=== PATIENT | male | born 1940 | race Caucasian/White ===

== ENCOUNTER → 2025-06-07 10:06 | Outpatient (REF) | payer MEDICARE, SELFPAY ==
[2025-06-07 12:21] LABS: Hematocrit 33.9 % (39.0-52.0); Hemoglobin 11.6 g/dL (13.0-18.0); Mean Corp Hgb Conc. 34.2 g/dL (33.0-37.0); Mean Corpuscular Volume 92.6 fL (80.0-94.0); Nucleated Red Blood Cells % 0 % (-); Platelet Count 175 10^3/uL (130-400); Red Cell Dist. Width 12.5 % (11.5-14.5)
[2025-06-07 12:31] LABS: ALT (SGPT) 13 U/L (0-50); AST (SGOT) 21 U/L (17-59); Albumin 3.3 g/dl (3.5-5.0); Alkaline Phosphatase 42 U/L (38-126); Blood Urea Nitrogen 17 mg/dl (9-20); Calcium 8.8 mg/dl (8.4-10.2); Carbon Dioxide 30 mmol/L (22-30); Chloride 105 mmol/L (98-107); Glucose 136 mg/dl (70-99); Potassium 3.9 mmol/L (3.5-5.1); Sodium 137 mmol/L (135-145); Total Protein 5.9 g/dl (6.3-8.2); eGFR > 60.00
[2025-06-08 08:40] LABS: Glycohemoglobin (HgbA1c) 6.3 % (4.0-5.6)
== END ==
LOC: OLABPATH 10:06
PROVIDERS: ATTENDING PHYSICIAN Internal Medicine
DX: E11.9 Type 2 diabetes mellitus without complications (principal); I10 Essential (primary) hypertension; F02.818 Dementia in other diseases classified elsewhere, unspecified severity, with other behavioral disturbance
CPT/HCPCS: 36415; 80053; 83036; 85025

== ENCOUNTER → 2025-06-08 11:20 | Outpatient (REF) | payer MEDICARE, SELFPAY ==
[2025-06-08 12:24] LABS: Urine Character Clear (Clear)
[2025-06-08 12:47] LABS: Urine Red Blood Cell 0-2 /HPF (0-2)
== END ==
LOC: OLABPATH 11:20
PROVIDERS: ATTENDING PHYSICIAN Internal Medicine
DX: E11.9 Type 2 diabetes mellitus without complications (principal); I10 Essential (primary) hypertension; F02.818 Dementia in other diseases classified elsewhere, unspecified severity, with other behavioral disturbance; N39.0 Urinary tract infection, site not specified
CPT/HCPCS: 36415; 81003; 81015; 87086